=== PATIENT | male | born 1955 | race Caucasian/White ===

== ENCOUNTER 2020-11-04 08:49 | Emergency (ER) | payer OTHER ==
[~2020-11-04] VITALS: Ht 190.5 cm; Wt 104.3 kg
[2020-11-04 09:27] LABS: Urine Bacteria FEW /hpf (None Seen); Urine Blood TRACE /uL (Negative); Urine Mucus FEW (None Seen); Urine Specific Gravity 1.016 (1.001-1.035); Urine WBC 17 /hpf (0 - 3)
[2020-11-04 10:16] VITALS: BP 133/92
== END 2020-11-04 10:29 | disposition home or self-care (01) ==
LOC: ER 08:49
DX: N39.0 Urinary tract infection, site not specified (principal); F17.210 Nicotine dependence, cigarettes, uncomplicated
CPT/HCPCS: 81001